=== PATIENT | female | born 1990 | race African-American/Black ===

== ENCOUNTER 2024-02-01 19:00 | Inpatient (IN) | payer OTHER ==
[~2024-02-01 19:00] MED LIST: Bupivacaine PF 0.5% 30 ML VIAL ONE; Lidocaine 2% MPF 10 ML AMP (For Epidural Use) ONE
[2024-02-01 20:50] VITALS: BMI 57.8
[2024-02-01] MEDS ORDERED: Promethazine HCl 25 MG/ML VIAL IM PRN (21:24)
[2024-02-01] MEDS ORDERED: Misoprostol 200 MCG TAB PR PRN (21:24)
[2024-02-01] MEDS ORDERED: Tranexamic Acid 1,000 MG/10 ML VIAL IVP PRN (21:24)
[2024-02-01] MEDS ORDERED: Carboprost 250 MCG/ML AMP IM PRN (21:24)
[2024-02-01] MEDS ORDERED: Docusate 100 MG CAP PO PRN (21:24)
[2024-02-01] MEDS ORDERED: Methylergonovine 0.2 MG/ML VIAL IM PRN (21:24)
[2024-02-01] MEDS ORDERED: Lidocaine 1% (PF) 30 ML VIAL SC PRN (21:24)
[2024-02-01] MEDS ORDERED: hydrALAZINE 20 MG/ML VIAL SLOW IVP PRN (21:24)
[2024-02-01] MEDS ORDERED: Ibuprofen 800 MG TAB PO PRN (21:24)
[2024-02-01] MEDS ORDERED: Ondansetron PF 4 MG/2 ML Vial IVP PRN (21:24)
[2024-02-01] MEDS ORDERED: Acetaminophen 500 MG TAB PO PRN (21:24)
[2024-02-01] MEDS ORDERED: Lactated Ringer's 1,000 ML IV SCH (21:30)
[2024-02-01] MEDS ORDERED: Oxytocin 30 units/NS 500 ML 500 ML IV SCH (21:30)
[2024-02-01 21:59] LABS: Glucose 170 mg/dL (70-105); Hematocrit 34.4 % (34.9-44.5); Hemoglobin 11.6 g/dL (12.0-15.5); Mean Corpuscular HGB CONC 33.7 g/dL (32.0-36.0); Mean Corpuscular Hemoglobin 30.5 pg (27.0-33.0); Mean Corpuscular Volume 90.5 fL (81.6-98.3); Platelet Count 321 10x3/uL (150-450); RBC Distribution Width 13.2 % (11.5-14.5); White Blood Cell (WBC) Count 10.6 10x3/uL (3.5-10.5)
[2024-02-01 22:13] LABS: Syphilis Antibody Nonreactive (Nonreactive); Syphilis Antibody Index 0.08 S/CO (<1.00 Non-Reactive)
[2024-02-01] MEDS: Penicillin G Potassium 5 MILL.UNITS in Sodium Chloride 0.9% 100 ML IVPB SCH (22:19)
[2024-02-01 22:32] LABS: HBsAg Index 0.18 S/CO (0-0.99); Hep B Surf Ag - L&D Non-Reactive S/CO (NonReactive)
[2024-02-01] MEDS: Misoprostol 100 MCG TAB VAG SCH (23:10)
[2024-02-02] MEDS ORDERED: Misoprostol 100 MCG TAB VAG SCH
[2024-02-02] MEDS: Labetalol HCl 100 MG TAB PO SCH ×2 (00:13→11:11)
[2024-02-02] MEDS: Insulin Lispro 100 UNIT/ML 10 ML VIAL SC SCH ×2 (00:15→02:47)
[2024-02-02] MEDS ORDERED: Ondansetron PF 4 MG/2 ML Vial IVP PRN ×2 (00:55→23:13)
[2024-02-02] MEDS ORDERED: Acetaminophen 325 MG TAB PO PRN ×2 (00:55→07:41)
[2024-02-02] MEDS ORDERED: ePHEDrine Sulfate 50 MG/10 ML VIAL SLOW IVP PRN ×2 (00:55→07:41)
[2024-02-02] MEDS ORDERED: Lactated Ringer's 500 ML IV PRN ×2 (00:55→08:08)
[2024-02-02] MEDS ORDERED: Naloxone HCl 0.4 mg/ml Vial IVP PRN ×6 (00:55→23:13)
[2024-02-02] MEDS ORDERED: diphenhydrAMINE 50 MG/ML VIAL IVP PRN ×2 (00:55→23:13)
[2024-02-02] MEDS ORDERED: Moisturizing Cream (Eucerin) 113 GM JAR TOP PRN ×3 (00:55→23:13)
[2024-02-02] MEDS ORDERED: Promethazine HCl 25 MG/ML VIAL IM PRN ×4 (00:55→23:13)
[2024-02-02] MEDS ORDERED: Communication Order-Pharmacy FS SCH ×3 (01:00→23:15)
[2024-02-02] MEDS ORDERED: fentaNYL 2 mcg/Ropivacaine 0.2% Epidural 100 ML CADD EPIDURAL SCH (01:00)
[2024-02-02] MEDS: Penicillin G 2.5 MILL.units 2.5 MILL.UNITS in Premix 1 BAG IVPB SCH (02:30)
[2024-02-02] MEDS: fentaNYL 2 mcg/Ropivacaine 0.2% Epidural 100 ML CADD EPIDURAL SCH (07:30)
[2024-02-02] MEDS: Oxytocin 30 units/NS 500 ML 500 ML IV SCH (11:14)
[2024-02-02] MEDS ORDERED: Sodium Chloride 0.65% Nasal 44 ML BOT EA NARE PRN (13:53)
[2024-02-02] MEDS: Loratadine 10 MG TAB PO SCH ×2 (16:22→16:25)
[2024-02-02] MEDS: Ondansetron PF 4 MG/2 ML Vial IVP PRN (18:17)
[2024-02-02] MEDS: diphenhydrAMINE 50 MG/ML VIAL IVP PRN (19:22)
[2024-02-02] MEDS ORDERED: Lanolin Ointment 7 GM TUBE TOP PRN (22:44)
[2024-02-02] MEDS ORDERED: hydrALAZINE 20 MG/ML VIAL SLOW IVP PRN (22:44)
[2024-02-02] MEDS ORDERED: Ondansetron HCl/PF 4 MG/2 ML Vial IVP PRN (23:13)
[2024-02-02] MEDS ORDERED: Naloxone HCl 0.4 mg/ml Vial IV PRN (23:13)
[2024-02-03] MEDS: Ketorolac Tromethamine 30 MG (1 mL) VIAL IVP PRN (01:14)
[2024-02-03] MEDS: Clindamycin/D5W 300 MG in Premix 1 BAG IVPB SCH (03:33)
[2024-02-03 03:53] LABS: Hemoglobin 10.1 g/dL (12.0-15.5); Mean Corpuscular HGB CONC 32.6 g/dL (32.0-36.0); Mean Platelet Volume 10.7 fL (7.4-10.4); Platelet Count 279 10x3/uL (150-450); RBC Distribution Width 13.4 % (11.5-14.5); Red Blood Cell (RBC) Count 3.37 10x6/uL (3.90-5.03); White Blood Cell (WBC) Count 11.7 10x3/uL (3.5-10.5)
[2024-02-03 06:28] LABS: D-Dimer Test 3.8 mcg/mL (0.19-0.50); Prothrombin Time 10.5 sec (9.5-12.1)
[2024-02-03] MEDS ORDERED: Glucagon 1 MG/ML KIT IM PRN (07:34)
[2024-02-03] MEDS ORDERED: Dextrose 5% in Water 1,000 ML IV PRN (07:34)
[2024-02-03] MEDS ORDERED: Insulin Lispro 100 UNIT/ML 10 ML VIAL SC PRN (07:34)
[2024-02-03] MEDS ORDERED: Dextrose 50% Abboject 50 ML SYRINGE SLOW IVP PRN (07:34)
[2024-02-03] MEDS: Dexamethasone 10 MG/ML VIAL ONE (07:36)
[2024-02-03] MEDS: Morphine PF 10 MG/10 ML VIAL ONE (07:36)
[2024-02-03] MEDS: Oxytocin 10 UNITS/ML VIAL ONE (07:37)
[2024-02-03] MEDS: Azithromycin 500 MG VIAL ONE (07:37)
[2024-02-03] MEDS: Ondansetron PF 4 MG/2 ML Vial ONE (07:37)
[2024-02-03] MEDS: CEFAZOLIN 2 GM VIAL ONE (07:37)
[2024-02-03] MEDS: fentaNYL 50 mcg/mL 1 mL Vial ONE ×4 (07:37→07:38)
[2024-02-03] MEDS: PHENYLEPHRINE-NS 100 MCG/ML 10 ML SYRINGE ONE (07:37)
[2024-02-03] MEDS: PROPOFOL 20 ML ONE (07:38)
[2024-02-03] MEDS: Boostrix 0.5 ML (Tdap) VIAL (>/=7 yrs of age) IM ONE (07:38)
[2024-02-03] MEDS: Acetaminophen 325 MG TAB PO SCH (07:38)
[2024-02-03] MEDS: Bupivacaine PF 0.5% 30 ML VIAL ONE (07:38)
[2024-02-03] MEDS: Clindamycin/D5W 300 MG/50 ML BAG IVPB SCH (07:48)
[2024-02-03] MEDS: Docusate 100 MG CAP PO SCH (09:01)
[2024-02-03] MEDS: Prenatal Vitamin 1 TAB PO SCH (09:01)
[2024-02-03] MEDS: Ferrous Sulfate 325 MG TAB PO SCH (09:03)
[2024-02-03] MEDS: metFORMIN 500 MG TAB PO SCH (09:03)
[2024-02-03] MEDS: diphenhydrAMINE 25 MG CAP PO PRN (12:12)
[2024-02-03] MEDS: HYDROcodone/Acetaminophen 10/325 mg Tablet PO PRN (13:48)
[2024-02-03] MEDS: Clindamycin 150 MG CAP PO SCH (13:49)
[2024-02-03] MEDS: HYDROcodone/Acetaminophen 5/325 mg Tablet PO PRN (14:03)
[2024-02-03] MEDS ORDERED: Clindamycin/D5W 300 MG in Premix 1 BAG IVPB SCH (15:30)
[2024-02-03] MEDS: Enoxaparin 40 MG (0.4 mL) SYRINGE SC SCH (22:16)
[2024-02-04] MEDS: Ibuprofen 800 MG TAB PO SCH (04:59)
[2024-02-04] MEDS: Sertraline 25 MG TAB PO SCH (09:21)
[2024-02-04] MEDS: Nystatin Powder 15 GM BOT TOP PRN (10:47)
[2024-02-05 07:33] LABS: #Basophils 0.01 10x3/uL (0.0-0.2); #Eosinophils 0.17 10x3/uL (0.0-0.5); #Neutrophils 5.29 10x3/uL (1.5-8.4); %Basophils 0.1 % (0.0-2.0); %Eosinophils 2.1 % (0.0-6.0); %Lymphocytes 23.9 % (18.0-47.0); %Monocytes 8.6 % (0.0-10.0); %Neutrophils 64.7 % (40.0-75.0); Hematocrit 31.1 % (34.9-44.5); Hemoglobin 10.2 g/dL (12.0-15.5); Mean Corpuscular HGB CONC 32.8 g/dL (32.0-36.0); Mean Corpuscular Hemoglobin 29.9 pg (27.0-33.0); Mean Corpuscular Volume 91.2 fL (81.6-98.3); Mean Platelet Volume 10.4 fL (7.4-10.4); Platelet Count 313 10x3/uL (150-450); RBC Distribution Width 13.6 % (11.5-14.5); Red Blood Cell (RBC) Count 3.41 10x6/uL (3.90-5.03); White Blood Cell (WBC) Count 8.2 10x3/uL (3.5-10.5)
[2024-02-05 07:47] LABS: ALT (SGPT) 31 U/L (8-55); AST (SGOT) 39 U/L (5-34); Alkaline Phosphatase 103 U/L (40-110); Anion Gap 14 mmol/L (10-20); BUN (Urea Nitrogen) 7 mg/dL (7.0-18.7); Bilirubin, Total 0.2 mg/dL (0.2-1.2); Calc. Creatinine Clearance 271 mL/min (70-130); Calcium 9.2 mg/dL (7.8-10.44); Carbon Dioxide 19 mmol/L (22-29); Chloride 109 mmol/L (98-107); Estimated GFR 116; Globulin 3.9 g/dL (2.4-3.5); Glucose 98 mg/dL (70-105); Protein, Total 5.9 g/dL (6.0-8.3); Sodium 138 mmol/L (136-145)
[2024-02-05] MEDS: Acetaminophen 500 MG TAB PO SCH (08:37)
[2024-02-05] MEDS: Ibuprofen 600 MG TAB PO SCH (11:40)
[2024-02-05] MEDS: Triamcinolone 0.1% Cream 15 GM TUBE TOP PRN (21:46)
[2024-02-06] MEDS ORDERED: Triamcinolone 0.1% Cream 15 GM TUBE TOP PRN (06:45)
[2024-02-06 08:20] VITALS: BP 144/73; TEMP 97.9
== END 2024-02-06 11:13 | disposition home or self-care (01) | DRG 783 ==
LOC: CSHLD 19:59 → CSHPP 02-03 00:59
PROVIDERS: ADMIT Family Medicine; ATTEND Family Medicine
PROC: 10D00Z1 Extraction of Products of Conception, Low, Open Approach (ICD-10-PCS; principal; 2024-02-02)
PROC: 0UB70ZZ Excision of Bilateral Fallopian Tubes, Open Approach (ICD-10-PCS; 2024-02-02)
PROC: 10H07YZ Insertion of Other Device into Products of Conception, Via Natural or Artificial Opening (ICD-10-PCS; 2024-02-02)
PROC: 10907ZC Drainage of Amniotic Fluid, Therapeutic from Products of Conception, Via Natural or Artificial Opening (ICD-10-PCS; 2024-02-02)
DX: O24.425 Gestational diabetes mellitus in childbirth, controlled by oral hypoglycemic drugs (principal); O24.32 Unspecified pre-existing diabetes mellitus in childbirth; O10.92 Unspecified pre-existing hypertension complicating childbirth; Z79.84 Long term (current) use of oral hypoglycemic drugs; E66.01 Morbid (severe) obesity due to excess calories; O99.214 Obesity complicating childbirth; Z79.899 Other long term (current) drug therapy; Z91.040 Latex allergy status; Z3A.38 38 weeks gestation of pregnancy; Z37.0 Single live birth; O76 Abnormality in fetal heart rate and rhythm complicating labor and delivery; O99.345 Other mental disorders complicating the puerperium; F53.0 Postpartum depression; Z30.2 Encounter for sterilization
CPT/HCPCS: 36415; 36416; 51702; 59200; 80053; 82947; 85025; 85027; 85049; 85300; 85362; 85384; 85610; 85730; 86780; 86850; 86900; 86901; 87340; 88302; 88307; J0665; J1100; J1200; J1650; J1815; J1885; J2274; J2405; J2540; J2590; J2704; J3010; J3490